=== PATIENT | male | born 1980 | race Caucasian/White ===

== ENCOUNTER 2020-09-14 20:00 | Emergency (ER) | payer OTHER ==
[~2020-09-14] VITALS: Ht 175.3 cm; Wt 118.0 kg
[2020-09-14 22:19] VITALS: BP 148/92
== END 2020-09-15 05:52 | disposition home or self-care (01) ==
LOC: ER 20:01
DX: M25.532 Pain in left wrist (principal); R22.32 Localized swelling, mass and lump, left upper limb; Z88.1 Allergy status to other antibiotic agents
CPT/HCPCS: 29125; 73110; 99283